=== PATIENT | male | born 1995 | race Caucasian/White ===

== ENCOUNTER 2019-06-09 06:39 | Emergency (ER) | payer OTHER ==
[~2019-06-09] VITALS: Ht 180.3 cm; Wt 79.5 kg
[2019-06-09] MEDS ORDERED: ACETAMINOPHEN 325 MG TAB PO ONE (07:00)
[2019-06-09 07:57] LABS: INFLUENZA A AMPLIFICATION NEGATIVE (NEGATIVE); INFLUENZA B AMPLIFICATION POSITIVE (NEGATIVE)
[2019-06-09] MEDS ORDERED: IBUPROFEN 800 MG TAB PO ONE (08:00)
[2019-06-09] MEDS ORDERED: OSEL75CA PO (08:07)
[2019-06-09] MEDS ORDERED: ONDA4TAB6 PO (08:07)
[2019-06-09 08:14] VITALS: BP 129/58
== END 2019-06-09 08:15 | disposition home or self-care (01) ==
LOC: M ED 06:39
DX: J10.89 Influenza due to other identified influenza virus with other manifestations (principal)